=== PATIENT | male | born 1930 | race Caucasian/White ===

== ENCOUNTER → 2016-08-01 | Outpatient (CLI) | payer MEDICARE, BC ==
--- NOTE | 2016-08-01 14:27 | RADRPT ---
PROCEDURE: Left knee radiographs. CLINICAL INDICATION: Left knee pain. TECHNIQUE: Three views. Weight bearing. Frontal, lateral, and patellar view. COMPARISON: No prior studies are available for comparison. FINDINGS: There is no fracture or dislocation. There are vascular calcifications consistent with atherosclerosis. The soft tissues are otherwise u nremarkable. There is diffuse osteopenia. There are degenerative changes with osteophytes arising from all 3 joint compartment margins. There is medial joint compartment narrowing. There are is enthesopathy of the patella superiorly and inf eriorly. There is no lytic or blastic lesion. There is no radiopaque foreign body. IMPRESSION: 1. Atherosclerosis. 2. Diffuse osteopenia. 3. Moderate degenerative change. 4. An cystography of the patella superiorly and inferiorly. 5. Otherwise unremarkable images of the left knee. RPTAT: QQ .Jayesh Duncan MD, Date Time Electronically viewed and signed by .Jayesh Duncan MD, on 08/01/2016 14:26 .R/
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
--- NOTE | 2016-08-02 04:29 | HKNOTE ---
DATE OF SERVICE: 08/01/[address] Tucker, Thank you for referring [facility] who was seen in my office today complaining of stiffness in h is left knee. The patient's entire history is rather bizarre. The closest I can come to a diagnosis is a locked k nee on account of a large torn meniscus. I have recommended that he have an arthroscopic evaluation and treatment of the knee. At worst case , we may try to improve the range of motion by manipulation. Enclosed is a copy of my office notes for your records. Thank you for confidence in referring him to my care. He will see you in the next few days for medical clearance for surgery. With warmest regards, Dictated By: JUSTYNA RAMIREZ/NTS Conf#: [id number] DID#: [id number] CC: LINDSEY TUCKER MD;*End*
== END | disposition home or self-care (01) ==
LOC: HKI 13:49
DX: S83.207A Unspecified tear of unspecified meniscus, current injury, left knee, initial encounter (principal); X58.XXXA Exposure to other specified factors, initial encounter; Y93.73 Activity, racquet and hand sports; Y92.312 Tennis court as the place of occurrence of the external cause; M25.662 Stiffness of left knee, not elsewhere classified
CPT/HCPCS: 20610; 73562; G0463